=== PATIENT | male | born 1970 | race Hispanic/Latino ===

== ENCOUNTER 2022-06-13 21:01 | Inpatient (IN) | payer OTHER ==
[~2022-06-13] VITALS: Ht 182.9 cm; Wt 109.5 kg
[2022-06-13] MEDS ORDERED: LABETALOL 20MG VIAL IV ONE (21:30)
[2022-06-13] MEDS ORDERED: LABETALOL 20MG SYG IV ONE (21:30)
[2022-06-13 21:35] LABS: BASOPHILS % (AUTO) 1.3 % (0.0-5.0); EOSINOPHILS % (AUTO) 2.2 % (0.0-8.0); HEMATOCRIT 46.9 % (42-54); LYMPHOCYTES % (AUTO) 48.1 % (21.0-51.0); MEAN CORPUSCULAR HEMOGLOBIN 29.7 pg (27.0-33.0); MEAN CORPUSCULAR HGB CONC 36.2 g/dL (32.0-36.0); MEAN CORPUSCULAR VOLUME 81.8 fL (79-99); MONOCYTES % (AUTO) 7.8 % (3.0-13.0); NEUTROPHILS % (AUTO) 40.3 % (40.0-77.0); PLATELET COUNT (AUTO) 242 K/uL (130-400); RED BLOOD CELL COUNT(AUTO) 5.73 MIL/uL (4.50-6.20); RED CELL DISTRIBUTION WIDTH 11.8 % (11.0-15.5); WHITE BLOOD COUNT (AUTO) 6.3 K/uL (4.8-10.8)
[2022-06-13 21:45] LABS: INR 0.93 (0.85-1.15); POTASSIUM 3.4 mmol/L (3.5-5.1); PROTHROMBIN TIME 9.8 SEC (9.6-11.6)
[2022-06-13 21:47] LABS: PARTIAL THROMBOPLASTIN TIME 24.9 SEC (26.3-35.5)
[2022-06-13 21:51] LABS: ALBUMIN 3.9 g/dL (3.5-5.0); TOTAL PROTEIN, SERUM 8.2 g/dL (6.0-8.3)
[2022-06-13 22:02] LABS: B-TYPE NATRIURETIC PEPTIDE 21 pg/mL (0-100)
[2022-06-13] MEDS ORDERED: ASPIRIN 81MG CHEW TAB PO ONE (23:00)
[2022-06-14] MEDS ORDERED: ACETAMINOPHEN 325 MG TAB PO PRN ×2 (02:00)
[2022-06-14] MEDS ORDERED: DEXTROSE 50%-WATER 50 ML DISP.SYRIN IV PRN (02:00)
[2022-06-14] MEDS ORDERED: ONDANSETRON 4MG INJ IV PRN (02:00)
[2022-06-14] MEDS ORDERED: NITROGLYCERIN 0.4 MG SL TAB SL PRN (02:00)
[2022-06-14] MEDS ORDERED: GLUCAGON 1MG KIT 1 MG ML IM PRN (02:00)
[2022-06-14] MEDS: INSULIN HUMULIN R 100 UNIT/ML 3ML SQ SCH ×7 (02:10→21:30)
[2022-06-14 02:17] LABS: AMPHET/METH SCREEN,URINE NEGATIVE (NEGATIVE); BARBITURATE SCREEN, URINE NEGATIVE (NEGATIVE); BENZODIAZEPINES SCREEN,URINE NEGATIVE (NEGATIVE); CANNABINOID SCREEN,URINE NEGATIVE (NEGATIVE); COCAINE SCREEN,URINE NEGATIVE (NEGATIVE); OPIATE SCREEN,URINE NEGATIVE (NEGATIVE); PHENCYCLIDINE SCREEN,URINE NEGATIVE (NEGATIVE)
[2022-06-14] MEDS ORDERED: IOHEXOL 350 MG/ML 100ML INFUS..BTL IV ONE (02:21)
[2022-06-14 02:33] LABS: APPEARANCE,URINE CLEAR (CLEAR); BILIRUBIN,URINE NEGATIVE (NEGATIVE); COLOR,URINE LIGHT-YELLOW (YELLOW); GLUCOSE, URINE (UA) >=1000 mg/dL (NEGATIVE); KETONES,URINE 10 mg/dL (NEGATIVE); LEUKOCYTE ESTERASE ,URINE NEGATIVE Leu/uL (NEGATIVE); NITRATE,URINE NEGATIVE (NEGATIVE); OCCULT BLOOD,URINE NEGATIVE (NEGATIVE); PROTEIN,URINE 20 mg/dL (NEGATIVE); UROBILINOGEN,URINE 0.2 mg/dL (0.2-1.0)
[2022-06-14 02:34] LABS: BACTERIA,URINE RARE /HPF (None Seen); MUCUS,URINE RARE LPF (None Seen); SQUAMOUS EPITHELIAL CELL,UR RARE /HPF (0-2); WBC,URINE 0-1 /HPF (0-1)
[2022-06-14 03:05] VITALS: BP 176/101
[2022-06-14 06:18] LABS: BASOPHILS % (AUTO) 0.9 % (0.0-5.0); EOSINOPHILS % (AUTO) 2.1 % (0.0-8.0); HEMATOCRIT 44.1 % (42-54); LYMPHOCYTES % (AUTO) 41.9 % (21.0-51.0); MEAN CORPUSCULAR HEMOGLOBIN 30.2 pg (27.0-33.0); MEAN CORPUSCULAR HGB CONC 36.1 g/dL (32.0-36.0); MEAN CORPUSCULAR VOLUME 83.8 fL (79-99); MONOCYTES % (AUTO) 8.4 % (3.0-13.0); NEUTROPHILS % (AUTO) 46.6 % (40.0-77.0); PLATELET COUNT (AUTO) 234 K/uL (130-400); RED BLOOD CELL COUNT(AUTO) 5.26 MIL/uL (4.50-6.20); WHITE BLOOD COUNT (AUTO) 7.7 K/uL (4.8-10.8)
[2022-06-14 06:42] LABS: ALBUMIN 3.5 g/dL (3.5-5.0); CREATININE 0.9 mg/dL (0.5-1.5); MAGNESIUM 1.5 mg/dL (1.80-2.40); POTASSIUM 3.4 mmol/L (3.5-5.1); TOTAL PROTEIN, SERUM 7.2 g/dL (6.0-8.3)
[2022-06-14 07:33] LABS: HEMOGLOBIN A1C 13.4 % (4.0-6.0)
[2022-06-14 08:00] VITALS: BP 151/90
[2022-06-14] MEDS: ENOXAPARIN SODIUM 40 MG/0.4 ML SYRINGE SQ SCH (08:12)
[2022-06-14] MEDS: ASPIRIN 81 MG EC TAB PO SCH (08:12)
[2022-06-14] MEDS: FAMOTIDINE 20MG VIAL IV SCH ×2 (08:12→21:25)
[2022-06-14] MEDS ORDERED: POTASSIUM CHLORIDE 10% ELIXIR 20 MEQ/15 ML UDCUP PO PRN (10:00)
[2022-06-14] MEDS ORDERED: POTASSIUM CHLORIDE 20MEQ/100ML 100 ML IV PRN (10:00)
[2022-06-14] MEDS ORDERED: MAGNESIUM 2GM PREMIX 50ML 50 ML IV PRN (10:00)
[2022-06-14] MEDS ORDERED: LIDOCAINE HCL-MPF 1% 2ML VIAL IV PRN (10:00)
[2022-06-14] MEDS: NICOTINE 21 MG/ 24 HR PATCH TD SCH (11:37)
[2022-06-14 12:00] VITALS: BP 152/103
[2022-06-14] MEDS: KCL 20 MEQ ERTAB PO PRN ×2 (13:14→14:09)
[2022-06-14] MEDS: CLOPIDOGREL 75MG TAB PO SCH (14:09)
[2022-06-14 16:00] VITALS: BP 160/114
[2022-06-14 20:04] VITALS: BP 155/102
[2022-06-14] MEDS ORDERED: INSULIN GLARGINE 100 UNITS/ML 10 ML VIAL SQ SCH (21:00)
[2022-06-14] MEDS ORDERED: ATORVASTATIN 40 MG TABLET PO SCH (21:00)
[2022-06-15 00:09] VITALS: BP 166/111
[2022-06-15 03:57] VITALS: BP 161/97
[2022-06-15 05:52] LABS: BASOPHILS % (AUTO) 0.8 % (0.0-5.0); EOSINOPHILS % (AUTO) 2.5 % (0.0-8.0); HEMATOCRIT 45.6 % (42-54); LYMPHOCYTES % (AUTO) 43.3 % (21.0-51.0); MEAN CORPUSCULAR HEMOGLOBIN 29.8 pg (27.0-33.0); MEAN CORPUSCULAR VOLUME 82.9 fL (79-99); MONOCYTES % (AUTO) 6.5 % (3.0-13.0); NEUTROPHILS % (AUTO) 46.6 % (40.0-77.0); PLATELET COUNT (AUTO) 241 K/uL (130-400); RED CELL DISTRIBUTION WIDTH 12.1 % (11.0-15.5); WHITE BLOOD COUNT (AUTO) 7.6 K/uL (4.8-10.8)
[2022-06-15 06:16] LABS: ALBUMIN 3.4 g/dL (3.5-5.0); CREATININE 0.8 mg/dL (0.5-1.5); MAGNESIUM 1.6 mg/dL (1.80-2.40); POTASSIUM 3.4 mmol/L (3.5-5.1)
[2022-06-15] MEDS: KCL 20 MEQ ERTAB PO PRN ×2 (06:35→10:05)
[2022-06-15] MEDS: INSULIN HUMULIN R 100 UNIT/ML 3ML SQ SCH ×6 (06:36→16:09)
[2022-06-15 08:00] VITALS: BP 167/105
[2022-06-15] MEDS ORDERED: INSULIN GLARGINE 100 UNITS/ML 10 ML VIAL SQ SCH (09:00)
[2022-06-15] MEDS: NICOTINE 21 MG/ 24 HR PATCH TD SCH (09:00)
[2022-06-15] MEDS: CLOPIDOGREL 75MG TAB PO SCH (09:43)
[2022-06-15] MEDS: FAMOTIDINE 20MG VIAL IV SCH (09:43)
[2022-06-15] MEDS: ENOXAPARIN SODIUM 40 MG/0.4 ML SYRINGE SQ SCH (09:44)
[2022-06-15] MEDS: ASPIRIN 81 MG EC TAB PO SCH (09:44)
[2022-06-15 11:43] VITALS: BP 139/112
[2022-06-15] MEDS ORDERED: CLOP-31 PO (13:29)
[2022-06-15] MEDS ORDERED: ATOR40TA69 PO (13:29)
[2022-06-15] MEDS ORDERED: AEC81 PO (13:29)
[2022-06-15] MEDS ORDERED: LOSA50TA64 PO (13:41)
[2022-06-15] MEDS ORDERED: LOSARTAN 50 MG TABLET PO SCH (14:00)
[2022-06-15 15:57] VITALS: BP 159/107
== END 2022-06-15 17:45 | disposition home or self-care (01) | DRG 64 ==
LOC: EDH 21:01 → EDHIP 21:02 → 4AH 06-14 03:43
PROVIDERS: ADMIT Internal Medicine; ATTEND Internal Medicine
DX: I63.9 Cerebral infarction, unspecified (principal); I21.A1 Myocardial infarction type 2; I50.31 Acute diastolic (congestive) heart failure; I16.1 Hypertensive emergency; E78.2 Mixed hyperlipidemia; L40.9 Psoriasis, unspecified; R29.6 Repeated falls; I11.0 Hypertensive heart disease with heart failure; R29.702 NIHSS score 2; E11.65 Type 2 diabetes mellitus with hyperglycemia; F17.210 Nicotine dependence, cigarettes, uncomplicated; Z91.81 History of falling; Z79.899 Other long term (current) drug therapy
CPT/HCPCS: 36415; 70450; 70496; 70498; 70551; 71045; 80053; 80061; 80305; 81001; 82550; 82948; 83036; 83721; 83735; 83874; 83880; 84484; 85025; 85610; 85730; 92522; 92610; 93306; 93356; 96374; 97039; G0378; J1650; J1815; J3475; J3490; Q9967